=== PATIENT | female | born 1995 | race Caucasian/White ===

== ENCOUNTER 2018-05-21 08:18 | Emergency (ER) | payer SELFPAY ==
[2018-05-21] MEDS ORDERED: 0.9 % SODIUM CHLORIDE 1,000 ML IV ONE (08:50)
--- NOTE | 2018-05-21 08:53 | ED Physician Documentation ---
Abdominal Pain - HISTORIAN Historian: patient - HPI Stated Complaint: Low abdominal cramping Chief Complaint: Abdominal Pain Additonal Information: bilat low abd sharp colicy abd pain worse on left-also diarrhea onset 5 days ag -onset freq normal color diarrhea-no dysuria. sha similar prev but this worse than prev Onset: days ago (5) Duration: waxing, waning Timing: worse Context: denies: out of country travel, bad food, recent trauma Severity: moderate, severe Quality: aching, cramping, sharp Associated Symptoms: diarrhea, back pain ([facility] due to scoliosis). denies: nausea Exacerbated by: movements, cough Relieved by: remaining still - ROS CONST: no problems GI/: denies: problems urinating CVS/RESP: none EYES/ENT: denies: problems with vision - SOCIAL HX Smoking History: cigarettes Alcohol Use: occasionally Drug Use: none - FAMILY HX Family History: no significant history - PAST HX Past History: other (headd trauma presumably resolved) Home Medications: Ambulatory Orders Medication Instructions Recorded NK 05/21/18 Allergies/Adverse Reactions: Allergies Allergy/AdvReac Type Severity Reaction Status Date / Time No Known Allergies Allergy Verified 05/21/18 09:20 - VITAL SIGNS Vital Signs: Vital Signs Temp Pulse Resp BP Pulse Ox 97.7 F 84 20 105/64 98 05/21/18 08:21 05/21/18 09:35 05/21/18 09:35 05/21/18 09:35 05/21/18 09:35 ED Results Lab/Radiology - Lab Results Lab Results: Lab Results 05/21/18 10:15 Lipase 52 U/L U/L (23-300) - Orders Orders: ED Orders Category Date Time Status Place IV Lock 1T Care 05/21/18 08:49 Active ABD SERIES PA CHEST [RAD] Stat Exams 05/21/18 Ordered US ABDOMEN COMPLETE [US] Stat Exams 05/21/18 Ordered LIPASE Stat Lab 05/21/18 10:15 Completed URINALYSIS Routine Lab 05/21/18 Ordered 0.9 % Sodium Chloride [Normal Saline] 1,000 ml Med 05/21/18 09:00 Ordered IV Q10H 0.9 % Sodium Chloride [Normal Saline] 1,000 ml Med 05/21/18 08:50 Discontinued IV Q1H Abdominal Pain Physical Exam - Physical Exam General Appearance: mild distress, anxious EENT: eye inspection normal NECK: normal inspection, thyroid normal CVS: reg rate & rhythm ABDOMEN: soft, non-tender, other (very slight bilat lower quad palp tenderness no guarding or rebound or rigidity) BACK: normal inspection SKIN: warm/dry, normal color. No: cyanosis, diaphoresis, jaundice, pallor EXTREMITIES: non-tender, normal range of motion NEURO: oriented X3, sensation nml, mood/affect nml Vital Signs: Vital Signs Temp Pulse Resp BP Pulse Ox 97.7 F 84 20 105/64 98 05/21/18 08:21 05/21/18 09:35 05/21/18 09:35 05/21/18 09:35 05/21/18 09:35 Discharge Clincal Impression: uterine - newly found Referrals: Samara Chapa [Primary Care Provider] - 2 Days Comments: see ob/gyne soon call [facility] FOR OTHER LAB Condition: Good Disposition: 01 HOME, SELF-CARE Decision to Admit: NO Decision Time: 11:20
[2018-05-21] MEDS: 0.9 % SODIUM CHLORIDE 1,000 ML IV SCH ×2 (09:53→10:21)
[2018-05-21 11:47] VITALS: BP 129/76
[2018-05-21 13:02] LABS: APPEARANCE,URINE CLOUDY (CLEAR); COLOR,URINE YELLOW (YELLOW); OCCULT BLOOD,URINE NEGATIVE (NEGATIVE); PH URINE 5.5 (5.0 - 8.0)
[2018-05-21 13:03] LABS: UROBILINOGEN URINE 0.2 Eu (0.2-1.0)
== END 2018-05-21 11:15 | disposition home or self-care (01) ==
LOC: ED 08:18
DX: Z33.1 Pregnant state, incidental (principal)
CPT/HCPCS: 81002; 81025; 83690; 99281; 99283; J7030; S1016

== ENCOUNTER 2018-06-10 15:22 | Emergency (ER) | payer MEDICAID, OTHER ==
[2018-06-10 15:51] VITALS: BP 130/73
[2018-06-10] MEDS ORDERED: 0.9 % SODIUM CHLORIDE 1,000 ML IV ONE (15:57)
[2018-06-10 16:22] LABS: BASOPHILS % 0.5 (0.0-1.5); EOSINOPHILS % 3.2 % (0.0-6.8); MEAN CORPUSCULAR HEMOGLOBIN 18.9 pg (28.0-34.0); MONOCYTES % 5.4 % (0.0-11.0); NEUTROPHILS # 8.9 # k/uL (1.4-7.7)
[2018-06-10 16:24] LABS: eGFR (Non-African) > 60
--- NOTE | 2018-06-10 16:41 | ED Physician Documentation ---
General Adult - HPI Stated Complaint: R flank pain in Chief Complaint: General Adult Onset: hours Timing: still present Severity: moderate Further Comments: yes (Pt is a 22 yo female with R flank pain who is at 7 weeks. Pt is . Pt delivered her 1st by and states that she had a placental hemorrhage with that . Pt has no hx kidney stones. Pt has had no vag bleeding or fluid.) - ROS CONST: no problems EYES/ENT: none CVS/RESP: none GI/: abdominal pain (R flank paihn) MS/SKIN/LYMPH: none - PAST HX Past History: other (c-sec) - SOCIAL HX Smoking History: non-smoker - FAMILY HX Family History: No - VITAL SIGNS Vital Signs: Vital Signs Temp Pulse Resp BP Pulse Ox 110 H 17 130/73 97 06/10/18 15:22 06/10/18 15:22 06/10/18 15:22 06/10/18 15:22 - REVIEWED ASSESSMENTS Nursing Assessment Reviewed: Yes Vitals Reviewed: Yes <Gianni Giron - Last Filed: 06/10/18 16:48> - VITAL SIGNS Vital Signs: Vital Signs Temp Pulse Resp BP Pulse Ox 110 H 17 130/73 97 06/10/18 15:22 06/10/18 15:22 06/10/18 15:22 06/10/18 15:22 <Osorio Mack - Last Filed: 06/10/18 20:43> - PAST HX Allergies/Adverse Reactions: Allergies Allergy/AdvReac Type Severity Reaction Status Date / Time No Known Allergies Allergy Verified 06/10/18 15:52 Home Medications: Ambulatory Orders Medication Instructions Recorded NK 05/21/18 Progress - Progress Progress: U/s: Ob ultrasound less than 14 weeks History: Right flank pain Transverse and longitudinal images were obtained through the pelvis. The images provided through the gestational sac are quite blurry. A pole is detected with crown-rump length 1.1 cm consistent with a 7 week 1 day IUP. Cardiac activity is visualized with heart rate 157 per minute. A normal appearing yolk sac is visualized. The left ovary is not seen. The right ovary is poorly visualized containing a 2.8 cm cyst, consistent with a corpus luteum cyst of . No free fluid is noted in the cul-de-sac. Impression: Limited images through the gestational sac are quite blurry. There is a viable 7 week 1 day intrauterine gestation. Estimated delivery date is January 26, 2019. The left ovary is not seen and the right ovary is poorly visualized, positioned quite high within the pelvis and containing a 2.8 cm cyst, consistent with a corpus luteum cyst of . NS 1 L IVF <Gianni Giron - Last Filed: 06/10/18 16:48> - Progress Progress: 17:32 2 day history of gradually increasing pain in the right flank area. Worse with deep breathing, coughing, laying on right side and moving. Has been vomiting related to . Not sure if she pulled a muscle or not. Has been trying to relax. It she relaxes in a chair or on a sofa she does OK but if she moves the pain will grab her. Has been treating pain with rest. No hematuria noted. No prior history of any liver abnl. No history of Hepatitis. <Osorio Mack - Last Filed: 06/10/18 20:43> ED Results Lab/Radiology - Lab Results Lab Results: Lab Results 06/10/18 06/10/18 15:50 15:50 WBC 12.80 K/ul H K/ul (4.00-12.00) RBC 5.81 M/ul H M/ul (3.90-5.20) Hgb 11.2 g/dL L g/dL (12.0-16.0) Hct 35.7 % % (34.5-46.5) MCV 61.0 fl L fl (80.0-100.0) MCH 18.9 pg L pg (28.0-34.0) MCHC 30.8 g/dL g/dL (30.0-36.0) RDW 18.8 % H % (11.3-14.3) Plt Count 424 K/mm3 H K/mm3 (130-400) Neut % (Auto) 69.1 % % (39.0-79.0) Lymph % (Auto) 21.8 % % (16.0-50.0) Wagoner % (Auto) 5.4 % % (0.0-11.0) Eos % (Auto) 3.2 % % (0.0-6.8) Baso % (Auto) 0.5 (0.0-1.5) Neut # (Auto) 8.9 # k/uL H # k/uL (1.4-7.7) Lymph # (Auto) 2.8 # k/uL # k/uL (0.6-4.0) Wagoner # (Auto) 0.7 # k/uL # k/uL (0.0-0.9) Eos # (Auto) 0.4 # k/uL # k/uL (0.0-0.6) Baso # (Auto) 0.1 # k/uL # k/uL (0.0-0.5) Sodium 141 mmol/L mmol/L (136-145) Potassium 3.6 mmol/L mmol/L (3.5-5.1) Chloride 103 mmol/L mmol/L (98-107) Carbon Dioxide 25 mmol/L mmol/L (22-30) BUN 7 mg/dL mg/dL (7-17) Creatinine 0.75 mg/dL mg/dL (0.52-1.04) Estimated Creat Clear 232 Est GFR ( Amer) > 60 (60 - ) Est GFR (Non-Af Amer) > 60 (60 - ) Glucose 93 mg/dL mg/dL (74-106) Calcium 9.4 mg/dL mg/dL (8.4-10.2) Total Bilirubin 0.5 mg/dL mg/dL (0.2-1.3) AST 118 U/L H U/L (15-46) ALT 188 U/L H U/L (13-69) Alkaline Phosphatase 149 U/L H U/L (38-126) Total Protein 7.9 g/dL g/dL (6.3-8.2) Albumin 4.5 g/dL g/dL (3.5-5.0) - Orders Orders: ED Orders Category Date Time Status Place IV Lock 1T Care 06/10/18 15:56 Active US OB FIRST TRIMESTER (<14WKS) [US] Stat Exams 06/10/18 Taken CBC/PLATELET/DIFF Stat Lab 06/10/18 15:50 Completed CMP [CMP] Stat Lab 06/10/18 15:50 Completed HCG QUANTITATIVE Routine Lab 06/10/18 15:50 Received UA W/MICRO IF INDICATED Stat Lab 06/10/18 15:41 Ordered 0.9 % Sodium Chloride [Normal Saline] 1,000 ml Med 06/10/18 15:57 Active IV Q1H <Gianni Giron - Last Filed: 06/10/18 16:48> - Lab Results Lab Results: Lab Results 06/10/18 06/10/18 06/10/18 15:50 15:50 15:50 WBC 12.80 K/ul H K/ul (4.00-12.00) RBC 5.81 M/ul H M/ul (3.90-5.20) Hgb 11.2 g/dL L g/dL (12.0-16.0) Hct 35.7 % % (34.5-46.5) MCV 61.0 fl L fl (80.0-100.0) MCH 18.9 pg L pg (28.0-34.0) MCHC 30.8 g/dL g/dL (30.0-36.0) RDW 18.8 % H % (11.3-14.3) Plt Count 424 K/mm3 H K/mm3 (130-400) Neut % (Auto) 69.1 % % (39.0-79.0) Lymph % (Auto) 21.8 % % (16.0-50.0) Wagoner % (Auto) 5.4 % % (0.0-11.0) Eos % (Auto) 3.2 % % (0.0-6.8) Baso % (Auto) 0.5 (0.0-1.5) Neut # (Auto) 8.9 # k/uL H # k/uL (1.4-7.7) Lymph # (Auto) 2.8 # k/uL # k/uL (0.6-4.0) Wagoner # (Auto) 0.7 # k/uL # k/uL (0.0-0.9) Eos # (Auto) 0.4 # k/uL # k/uL (0.0-0.6) Baso # (Auto) 0.1 # k/uL # k/uL (0.0-0.5) Sodium 141 mmol/L mmol/L (136-145) Potassium 3.6 mmol/L mmol/L (3.5-5.1) Chloride 103 mmol/L mmol/L (98-107) Carbon Dioxide 25 mmol/L mmol/L (22-30) BUN 7 mg/dL mg/dL (7-17) Creatinine 0.75 mg/dL mg/dL (0.52-1.04) Estimated Creat Clear 232 Est GFR ( Amer) > 60 (60 - ) Est GFR (Non-Af Amer) > 60 (60 - ) Glucose 93 mg/dL mg/dL (74-106) Calcium 9.4 mg/dL mg/dL (8.4-10.2) Total Bilirubin 0.5 mg/dL mg/dL (0.2-1.3) AST 118 U/L H U/L (15-46) ALT 188 U/L H U/L (13-69) Alkaline Phosphatase 149 U/L H U/L (38-126) Total Protein 7.9 g/dL g/dL (6.3-8.2) Albumin 4.5 g/dL g/dL (3.5-5.0) Lipase 32 U/L U/L (23-300) - Orders Orders: ED Orders Category Date Time Status Place IV Lock 1T Care 06/10/18 15:56 Active US OB FIRST TRIMESTER (<14WKS) [US] Stat Exams 06/10/18 Taken CBC/PLATELET/DIFF Stat Lab 06/10/18 15:50 Completed CMP [CMP] Stat Lab 06/10/18 15:50 Completed HCG QUANTITATIVE Routine Lab 06/10/18 15:50 Received LIPASE Stat Lab 06/10/18 15:50 Completed UA W/MICRO IF INDICATED Stat Lab 06/10/18 15:41 Ordered 0.9 % Sodium Chloride [Normal Saline] 1,000 ml Med 06/10/18 15:57 Discontinued IV Q1H <Osorio Mack - Last Filed: 06/10/18 20:43> General Adult Physical Exam - PHYSICAL EXAM GENERAL APPEARANCE: mild distress EENT: pharynx normal NECK: normal inspection, supple RESPIRATORY: no resp distress, chest non-tender, breath sounds normal CVS: reg rate & rhythm, heart sounds normal, equal pulses ABDOMEN: soft, normal bowel sounds, tenderness (R flank ) BACK: normal inspection, no CVA tenderness SKIN: warm/dry, normal color EXTREMITIES: non-tender, normal range of motion, no evidence of injury NEURO: oriented X3, motor nml, sensation nml <Gianni Giron Last Filed: 06/10/18 16:48> - PHYSICAL EXAM RESPIRATORY: no resp distress, chest non-tender, breath sounds normal CVS: reg rate & rhythm, heart sounds normal ABDOMEN: soft, no organomegaly, normal bowel sounds, tenderness (R flank , over the lower lateral rib cage area. Some tendernes to palpation. No bony abnl noted.) BACK: no CVA tenderness SKIN: warm/dry, normal color <Osorio Mack - Last Filed: 06/10/18 20:43> Discharge <Gianni Giron - Last Filed: 06/10/18 16:48> Decision to Admit: NO Date of Decison to Admit: 06/10/18 Decision Time: 17:43 <Osorio Mack - Last Filed: 06/10/18 20:43> Clincal Impression: Abdominal wall pain in right flank, LFT elevation Referrals: Samara Chapa [Primary Care Provider] - 06/14/18 Additional Instructions: Try putting a cool or warm compress to the area of pain. Continue to rest. Try taking some tylenol to help with the pain. If you develop any fever, chills, blood in urine or stool, or if pain becomes worse to follow-up with your primary care provider or return to the ED. Patient advised to see PCP about elevated LFT. Probably related to Nonalcoholic fatty liver disease. Condition: Stable Disposition: 01 HOME, SELF-CARE
[2018-06-10 20:33] LABS: APPEARANCE,URINE CLEAR (CLEAR); COLOR,URINE YELLOW (YELLOW); OCCULT BLOOD,URINE NEGATIVE (NEGATIVE)
--- NOTE | 2018-06-11 06:15 | Diagnostic Imaging Report ---
MICHELLE REAVES [facility] [id number] [facility] [address] [address] Report Submission Date: Jun 10, 2018 4:27:56 PM [employer] Patient Study Name: CHANTELL HAGER Date: Jun 10, 2018 3:51:51 PM [employer] Modality Type: US Gender: F Description: US OB FIRST TRIMESTER (<14WKS) : 89 Institution: [facility] Physician: MICHELLE REAVES Ob ultrasound less than 14 weeks History: Right flank pain Transverse and longitudinal images were obtained through the pelvis. The images provided through the gestational sac are quite blurry. A pole is detected with crown-rump length 1.1 cm consistent with a 7 week 1 day IUP. Cardiac activity is visualized with heart rate 157 per minute. A normal appearing yolk sac is visualized. The left ovary is not seen. The right ovary is poorly visualized containing a 2.8 cm cyst, consistent with a corpus luteum cyst of . No free fluid is noted in the cul-de-sac. Impression: Limited images through the gestational sac are quite blurry. There is a viable 7 week 1 day intrauterine gestation. Estimated delivery date is January 26, 2019. The left ovary is not seen and the right ovary is poorly visualized, positioned quite high within the pelvis and containing a 2.8 cm cyst, consistent with a corpus luteum cyst of . Electronically signed on Jun 10, 2018 4:27:56 PM [employer] by: Kiki BONNER
== END 2018-06-10 18:28 | disposition home or self-care (01) ==
LOC: ED 15:22
DX: Z34.81 Encounter for supervision of other normal pregnancy, first trimester (principal); R10.31 Right lower quadrant pain; R79.89 Other specified abnormal findings of blood chemistry
CPT/HCPCS: 36415; 76801; 80053; 81002; 83690; 84702; 85025; 99283; 99284; J7030; S1016